=== PATIENT | female | born 1955 | race Caucasian/White ===

== ENCOUNTER 2018-06-07 10:01 | Emergency (ER) | payer OTHER, SELFPAY ==
[2018-06-07 10:04] VITALS: BP 156/93; PULSE 84; RESP 20; TEMP 36.6; O2SAT 98; BMI 28.3
--- NOTE | 2018-06-07 10:16 | CT_ITS ---
STUDY: CT ABDOMEN AND PELVIS WITH CONTRAST REASON FOR EXAM: Female, 62 years old. Severe lower abdominal pain starting last night. Blood clot in stool, nausea. RADIATION DOSAGE (If Supplied By Facility): CTDIvol = ( 17.95 ) mGy, DLP = ( 1164.25 ) mGycm TECHNIQUE: Transaxial images were obtained from the dome of the diaphragm to the symphysis pubis without oral contrast. 100CC ml of Isovue 300 contrast was administered. Sagittal and coronal images were reconstructed. Individualized dose optimization techniques were used for this CT. COMPARISON: CT abdomen and pelvis January 28, 2015. FINDINGS: The visualized lung bases are unremarkable. The visualized portions of the heart are within normal limits. Liver density is difficult to accurately assess following IV contrast. There is hepatomegaly, however, with diffuse hepatic enlargement. The patent portal vein diameter is 1.3 cm. Normal gallbladder and extrahepatic biliary system. The common bile duct diameter reaches 5.5 mm. Normal spleen. Normal pancreas. Normal bilateral adrenal glands. Normal right kidney. Normal left kidney. No hydronephrosis. Normal visualized stomach. Normal small intestine. Normal colon. The partially gas filled appendix is visualized on series 601 image 61 and appears normal. There is minor atherosclerotic calcification of the abdominal aorta, without a demonstrated aneurysm. [id number] atherosclerotic calcific plaquing of the common iliac and internal iliac arteries. Normal inferior vena cava. Normal retroperitoneum. Normal urinary bladder. There is absence of the uterus consistent with a prior hysterectomy. Normal abdominal wall. There are stable multilevel degenerative changes of the visualized spine. Possible limbus vertebra at the anterior superior margin of L3. Stable focal, benign-appearing sclerotic densities in the anterior column right acetabulum and left femoral head. CT/Abdomen/Pelvis W IV Cont ONLY IMPRESSION: 1. Hepatomegaly. Liver density is difficult to assess after IV contrast. No focal hepatic mass. 2. The bowel is unremarkable without signs of obstruction or suspicious mural thickening. No diverticulosis. The appendix is normal. 3. Prior hysterectomy. Electronically Signed: Kvng Harris MD at 12:09 EST , Service support ,
[2018-06-07] MEDS: 0.9% Normal Saline 1,000 ML 1000 ML IV (10:25)
[2018-06-07] MEDS: Morphine 4 MG/ML Syringe IV (10:25)
[2018-06-07] MEDS: Ondansetron 4 MG/2 ML Vial IV (10:26)
--- NOTE | 2018-06-07 10:26 | ED.DCSUM_ITS ---
- ER Visit Summary Date of Service: 06/07/18 Chief Complaint: Abdominal pain History of Present Illness: The patient is a 62 F with abdominal pain. Onset was today at 1 AM. Pain is in her lower abdomen and radiates up into the left flank and left lower back. She has had some blood clots in her stool as well as nausea and sweats. She had this years ago with a twisted bowel, but her symptoms were not this bad. She has a history of a hysterectomy, 2 C-sections, hypertension, and hypothyroidism. Does not take blood thinners. Patient had a colonoscopy in the past and has known diverticulosis as well as colon polyps. Physical Examination: Afebrile and vital signs unremarkable. Patient tearful and appears uncomfortable. Skin appears normal without pallor or jaundice. Heart regular. Abdomen soft. Tender in the lower hemiabdomen. No guarding or rebound. Test Results: Laboratory studies, urinalysis, and CT abdomen are pending. Emergency Department Course and Treatment: Patient treated with fluids, morp carolyn, and Zofran while awaiting results. CBC normal. Coags normal. Chemistry panel unremarkable. Urinalysis unremarkable. Lactate 1.9. Hemoccult testing positive. CT showed hepatomegaly, normal bowel, postoperative changes. On reevaluation, the patient is feeling better. Vital stable. Patient not having significant bleeding. I spoke with Dr. Smith who was on-call for the [facility] [place]. He advised outpatient follow-up. Patient was given his number. She should return right away for new or worsening issues. Treatment Plan: As above Disposition: Discharge Impression: 1. Abdominal pain 2. Hematochezia This note was generated with [employer] dictation software. It may contain incorrect words, spelling, and punctuation that were not noted in review of the chart prior to signing ED Disposition - Plan for ED Patient: Chief Complaint: Abd Pain Referrals: Ashish Villela MD [Primary Care Provider] -
[2018-06-07 10:32] LABS: Absolute Neutrophil Count 8.1 X10^3/uL (2.0-7.7); Basophil# 0.04 X10^3/uL; Basophil% 0.4 % (0-1); Eosinophil# 0.15 X10^3/uL; Eosinophils% 1.5 % (0-5); Hematocrit 40.9 % (37-47); Hemoglobin 13.8 g/dl (12.0-15.0); Lymphocyte % 11.7 % (19-41); Mean Corp Hgb Conc 33.7 g/gl (32-36); Mean Corpuscular Volume 88.9 fL (81-99); Mean Platelet Vol. 11.3 fl (6.2-12.0); Monocyte% 7.8 % (0-10); Neutrophil # 8.08 X10^3/uL (2.7-7.7); Neutrophil % 78.5 % (47-70); POSITIVE COUNT NO; POSITIVE DIFFERENTIAL NO; POSITIVE MORPHOLOGY NO; Platelet Count 211 K/mm3 (150-450); RBC Distribution Width SD 41.6 fl (35.1-43.9); White Blood Count 10.3 K/mm3 (4.4-11.0)
[2018-06-07 10:36] LABS: Bacteria 0 SEEN /hpf (None Seen); Mucous, Urine 0 SEEN /hpf (<or=2+); Red Blood Cells-Urine 0 SEEN /hpf (0-5); White Blood Cells 0 SEEN /hpf (0-5)
[2018-06-07 10:42] LABS: Partial Thromboplast Time 24.7 Seconds (24.1-36.2); Prothrombin Time (Protime)PT. 12.9 SECONDS (11.7-14.9)
[2018-06-07 10:48] LABS: ALB/GLOB Ratio 1.3 RATIO (0.9-2.4); AST(SGOT) 34 U/L (15-37); Alanine Aminotransfer ALT/SGPT 74 U/L (13-56); Albumin, Serum 4.2 g/dL (3.2-5.0); Alkaline Phosphatase 110 U/L (45-117); Anion Gap 11 (5-15); BUN 18 mg/dL (7-18); BUN/Creat Ratio 22.6 RATIO (10-20); Calcium,Total 8.7 mg/dL (8.5-10.1); Chloride 105 mmol/L (98-107); EST Glomerular Filtration Rate 78 mL/min (>60); Est Glom Filt Rate - Afr Amer 94 mL/min (>60); Estimated Creatinine Clearance 60.31 ml/min; Globulin 3.2 g/dL (2.2-4.2); Glucose 153 mg/dL (74-106); Lipase 117 U/L (73-393); Protein, Total 7.4 g/dL (6.4-8.2); Sodium Level 139 mmol/L (136-145)
[2018-06-07 10:59] LABS: Lactic Acid 1.9 mmol/L (0.4-2.0)
[2018-06-07 10:59] LABS: Color, Urine Yellow (Yellow); Glucose, Dipstick Normal (Normal); Ketone-Dipstick Negative (Negative); Leukocyte Esterase-Dipstick Negative /ul (Negative); Nitrite-Dipstick Negative (Negative); Occult Blood-Urine Negative /ul (Negative); Protein-Dipstick Negative (Negative); Urine Bilirubin Dipstick Negative (Negative); Urine Clarity Clear (Clear); Urine Urobilinogen Normal (Normal)
[2018-06-07 11:09] LABS: Squamous Epithelial Cells - UA 0-5 SEEN /hpf (5-10)
[2018-06-07 12:27] VITALS: BP 131/72
[2018-06-07 14:00] VITALS: RESP 14
--- NOTE | 2018-06-07 14:09 | ED.DEP ---
ED Disposition - Plan for ED Patient: Chief Complaint: Abd Pain Instructions: ED Hematochezia Stable Referrals: Daniele Smith MD [STAFF PHYSICIAN] -
[2018-06-07 14:14] VITALS: BP 131/76; PULSE 71; RESP 16; O2SAT 94
== END 2018-06-07 14:18 | disposition home or self-care (01) ==
LOC: ED 10:45
PROVIDERS: Emergency Provider Emergency Medicine; Family Provider Family Medicine; PCP Family Medicine
DX: R10.30 Lower abdominal pain, unspecified (principal); K92.1 Melena; R11.0 Nausea; R68.83 Chills (without fever); I10 Essential (primary) hypertension; E03.9 Hypothyroidism, unspecified; K57.30 Diverticulosis of large intestine without perforation or abscess without bleeding; Z86.010 Personal history of colon polyps; Z79.82 Long term (current) use of aspirin; Z79.899 Other long term (current) drug therapy
CPT/HCPCS: 74177; 80053; 81001; 82274; 83605; 83690; 85025; 85610; 85730; 96361; 96374; 96375; 99283; J7030; Q9967; A4216; J2405